=== PATIENT | female | born 1935 | race Caucasian/White ===

== ENCOUNTER → 2017-07-09 | Outpatient (CLI) | payer MEDICARE, OTHER ==
[~2017-07-09] MED LIST: ASPIRIN325; CALCIUM + VITA1 EACH PO; CALCIUM 600 +1 EAC5; CEPHALEXIN 500500 M3 PO; COUMADIN 5 MG TA5 MG PO; CRESTOR10 MG; HERBAL ENERGY1 EACH PO; HYDROCODONE-AP1 EAC6 PO; LEXAPRO 10 MG T10 M2; LIPITOR 20 MG T20 M1 PO; MULTIVITAMINS1 EAC7 PO; NORVASC5 MG PO; OMEGA-31000 M1 PO; SERTRALINE HCL50 MG PO; TIKOSYN500 MCG PO; VERAPAMIL ER180 MG; VITAMIN D400 UNI1 PO; XARELTO1 EACH PO
[2017-07-09 09:26] LABS: CHOLESTEROL 103 mg/dL (<200); HDL CHOLESTEROL 53 mg/dL (>40); LDL CHOLESTEROL 42 mg/dL (<100); TC:HDL 1.9 Ratio (Not establshd); TRIGLYCERIDE 43 mg/dL (<150); VLDL 9 mg/dL (<40)
[2017-07-09 09:27] LABS: SERUM ASSESSMENT Clear
[2017-07-10 02:07] LABS: GLYCOHEMOGLOBIN (HGB A1C) 6.9 % (4.8-5.6)
== END ==
LOC: M.LAB 08:31
PROVIDERS: Internal Medicine
DX: E78.2 Mixed hyperlipidemia (principal); E11.65 Type 2 diabetes mellitus with hyperglycemia; R26.2 Difficulty in walking, not elsewhere classified; I48.2 Chronic atrial fibrillation; Z79.4 Long term (current) use of insulin

== ENCOUNTER → 2017-10-13 | Outpatient (CLI) | payer MEDICARE, OTHER ==
[2017-10-13 09:25] LABS: CALCIUM 8.4 mg/dL (8.5-10.1); CREATININE 0.9 mg/dL (0.6-1.3); POTASSIUM 4.1 mmol/L (3.5-5.1)
[2017-10-14 02:06] LABS: GLYCOHEMOGLOBIN (HGB A1C) 7.5 % (4.8-5.6)
== END ==
LOC: M.LAB 08:55
PROVIDERS: Internal Medicine
DX: I10 Essential (primary) hypertension (principal); E11.65 Type 2 diabetes mellitus with hyperglycemia; I48.91 Unspecified atrial fibrillation; Z79.4 Long term (current) use of insulin

== ENCOUNTER → 2018-04-08 | Outpatient (CLI) | payer MEDICARE, OTHER | LOC: M.LAB 04-05 15:22 → M.CT 08:41 → M.LAB 10:30 | PROVIDERS: Nurse Practitioner | DX: N10 Acute pyelonephritis (principal); K57.30 Diverticulosis of large intestine without perforation or abscess without bleeding; Z88.8 Allergy status to other drugs, medicaments and biological substances ==

== ENCOUNTER → 2018-09-07 | Outpatient (CLI) | payer MEDICARE, OTHER ==
[2018-09-07 07:54] LABS: ABSOLUTE EOSINOPHILS 0.2 thou/uL (0.0-0.7); ABSOLUTE LYMPHOCYTES 0.8 thou/uL (0.8-5.3); ABSOLUTE MONOCYTES 0.3 thou/uL (0.0-1.2); ABSOLUTE NEUTROPHILS 2.9 thou/uL (1.6-8.1); BASOPHILS 1.1 %; EOSINOPHILS 3.9 %; HEMATOCRIT 37.2 % (37.0-47.0); HEMOGLOBIN 12.6 gm/dL (12.0-15.0); LYMPHOCYTES 19.6 %; MCH 30.3 pg (26.0-34.0); MCHC 33.9 g/dL (28.0-37.0); MCV 89.3 fL (80.0-100.0); MONOCYTES 7.9 %; MPV 7.2 fl. (7.2-11.1); NUCLEATED RBCS 0 /100WBC; PLATELET COUNT* 207 thou/uL (150-400); POLYS 67.5 %; RBC 4.17 mil/uL (4.20-5.00); RDW-CV 16.1 % (10.5-14.5); WBC 4.3 thou/uL (4.0-11.0)
[2018-09-07 08:27] LABS: ALBUMIN 3.2 g/dL (3.4-5.0); CALCIUM 8.7 mg/dL (8.5-10.1); CREATININE 0.9 mg/dL (0.6-1.3); MAGNESIUM 2.1 mg/dL (1.8-2.4); POTASSIUM 4.4 mmol/L (3.5-5.1); TOTAL BILIRUBIN 0.8 mg/dL (<0.1-1.0); TOTAL PROTEIN 6.6 g/dL (6.4-8.2)
== END ==
LOC: M.LAB 07:33
DX: I48.0 Paroxysmal atrial fibrillation (principal); I25.10 Atherosclerotic heart disease of native coronary artery without angina pectoris; R06.09 Other forms of dyspnea; I50.31 Acute diastolic (congestive) heart failure; R09.89 Other specified symptoms and signs involving the circulatory and respiratory systems; R60.9 Edema, unspecified; R14.0 Abdominal distension (gaseous)

== ENCOUNTER → 2018-09-15 | Outpatient (CLI) | payer MEDICARE, OTHER ==
[2018-09-15 08:19] LABS: POTASSIUM 4.4 mmol/L (3.5-5.1)
== END ==
LOC: M.LAB 07:21
DX: I11.0 Hypertensive heart disease with heart failure (principal); I50.31 Acute diastolic (congestive) heart failure; I48.0 Paroxysmal atrial fibrillation; I25.10 Atherosclerotic heart disease of native coronary artery without angina pectoris; R60.9 Edema, unspecified; R14.0 Abdominal distension (gaseous)

== ENCOUNTER → 2019-01-27 | Outpatient (CLI) | payer MEDICARE, OTHER ==
[2019-01-27 08:16] LABS: ABSOLUTE EOSINOPHILS 0.2 thou/uL (0.0-0.7); ABSOLUTE LYMPHOCYTES 0.8 thou/uL (0.8-5.3); ABSOLUTE MONOCYTES 0.4 thou/uL (0.0-1.2); ABSOLUTE NEUTROPHILS 3.1 thou/uL (1.6-8.1); BASOPHILS 1.1 %; EOSINOPHILS 4.4 %; HEMOGLOBIN 13.3 gm/dL (12.0-15.0); LYMPHOCYTES 17.8 %; MCH 31.2 pg (26.0-34.0); MCHC 35.1 g/dL (28.0-37.0); MCV 88.9 fL (80.0-100.0); MONOCYTES 8.1 %; MPV 7.6 fl. (7.2-11.1); NUCLEATED RBCS 0 /100WBC; PLATELET COUNT* 194 thou/uL (150-400); POLYS 68.6 %; RBC 4.27 mil/uL (4.20-5.00); RDW-CV 15.8 % (10.5-14.5); WBC 4.5 thou/uL (4.0-11.0)
[2019-01-27 08:32] LABS: ALBUMIN 3.3 g/dL (3.4-5.0); ALKALINE PHOSPHATASE 83 U/L (46-116); ANION GAP 10 mmol/L (7-16); BUN 13 mg/dL (7-18); CALCIUM 8.5 mg/dL (8.5-10.1); CHLORIDE 103 mmol/L (98-107); CHOLESTEROL 90 mg/dL (<200); CO2 26 mmol/L (21-32); GLUCOSE 138 mg/dL (70-99); HDL CHOLESTEROL 51 mg/dL (>40); LDL CHOLESTEROL 26 mg/dL (<100); SERUM ASSESSMENT Clear; SGOT 14 U/L (15-37); SGPT 21 U/L (30-65); SODIUM 139 mmol/L (136-145); TC:HDL 1.8 Ratio (Not establshd); TOTAL BILIRUBIN 0.6 mg/dL (<0.1-1.0); TRIGLYCERIDE 67 mg/dL (<150); VLDL 13 mg/dL (<40)
== END ==
LOC: M.LAB 07:31
PROVIDERS: Internal Medicine
DX: Z11.59 Encounter for screening for other viral diseases (principal); I48.21 Permanent atrial fibrillation; E11.65 Type 2 diabetes mellitus with hyperglycemia; E78.00 Pure hypercholesterolemia, unspecified; Z79.4 Long term (current) use of insulin; Z79.899 Other long term (current) drug therapy

== ENCOUNTER 2019-07-31 07:23 | Emergency (ER) | payer MEDICARE, OTHER ==
[~2019-07-31] VITALS: Ht 172.7 cm; Wt 88.0 kg
[~2019-07-31 07:23] MED LIST changes: +VITAMIN D-40010 MCG PO; -VITAMIN D400 UNI1 PO
[2019-07-31] MEDS ORDERED: LOMOTIL 2.5-0.01 TAB PO (07:40)
[2019-07-31] MEDS ORDERED: TRADJENTA5 MG (07:40)
[2019-07-31] MEDS ORDERED: LANTUS SUBQ (07:40)
[2019-07-31] MEDS ORDERED: MAGNESIUM400 MG PO (07:41)
[2019-07-31] MEDS ORDERED: TOPROL XL25 MG PO (07:41)
[2019-07-31] MEDS ORDERED: NOVOLOG100 UNIT/M SUBQ (07:41)
[2019-07-31] MEDS ORDERED: FUROSEMIDE 40 M40 MG PO (07:42)
[2019-07-31] MEDS ORDERED: SPIRONOLACTONE25 MG PO (07:42)
[2019-07-31] MEDS ORDERED: COUMADIN 5 MG TA5 M1 PO (07:42)
[2019-07-31] MEDS ORDERED: OYSCO 500+D TA1 EACH PO (07:44)
[2019-07-31] MEDS ORDERED: B12INJ IM (07:44)
[2019-07-31] MEDS ORDERED: CINNAMON500 MG PO (07:45)
[2019-07-31] MEDS ORDERED: COENZYME Q-1030 MG PO (07:45)
[2019-07-31] MEDS ORDERED: AZO CRANBERRY250 MG PO (07:46)
[2019-07-31 07:57] LABS: ABSOLUTE BASOPHILS 0.1 thou/uL (0.0-0.2); ABSOLUTE EOSINOPHILS 0.2 thou/uL (0.0-0.7); ABSOLUTE LYMPHOCYTES 0.8 thou/uL (0.8-5.3); ABSOLUTE MONOCYTES 0.4 thou/uL (0.0-1.2); ABSOLUTE NEUTROPHILS 3.2 thou/uL (1.6-8.1); BASOPHILS 1.3 %; EOSINOPHILS 3.4 %; HEMATOCRIT 36.7 % (37.0-47.0); HEMOGLOBIN 12.7 gm/dL (12.0-15.0); LYMPHOCYTES 17.5 %; MCH 31.3 pg (26.0-34.0); MCHC 34.6 g/dL (28.0-37.0); MCV 90.3 fL (80.0-100.0); MONOCYTES 8.9 %; MPV 7.9 fl. (7.2-11.1); NUCLEATED RBCS 0 /100WBC; PLATELET COUNT* 189 thou/uL (150-400); POLYS 68.9 %; RBC 4.06 mil/uL (4.20-5.00); RDW-CV 15.4 % (10.5-14.5); WBC 4.6 thou/uL (4.0-11.0)
[2019-07-31 08:01] LABS: CALCIUM 8.3 mg/dL (8.5-10.1); CREATININE 1.1 mg/dL (0.6-1.3); POTASSIUM 3.8 mmol/L (3.5-5.1)
[2019-07-31 08:02] LABS: APTT 31.7 Seconds (25.0-31.3); INR 2.3
[2019-07-31 08:11] LABS: ALBUMIN 3.2 g/dL (3.4-5.0); TOTAL BILIRUBIN 0.7 mg/dL (<0.1-1.0); TOTAL PROTEIN 6.9 g/dL (6.4-8.2)
[2019-07-31 08:11] LABS: URINE BILIRUBIN NEGATIVE (Negative); URINE BLOOD 1+ (Negative); URINE CLARITY SL CLOUDY; URINE COLOR YELLOW; URINE GLUCOSE-RANDOM TRACE (Negative); URINE KETONES NEGATIVE (Negative); URINE PROTEIN NEGATIVE (Negative); URINE SPECIFIC GRAVITY 1.015 (1.005-1.030); URINE UROBILINOGEN 0.2 E.U./dl (0.2-1.0)
[2019-07-31 08:12] LABS: URINE LEUKOCYTES-REFLEX 2+ (Negative); URINE NITRITE-REFLEX POSITIVE (Negative)
[2019-07-31 08:20] LABS: SQUAMOUS 4-10 Moderate /LPF (0-3); WBC CLUMPS Few (None Seen)
[2019-07-31 08:21] LABS: BACTERIA-REFLEX >30 Many /HPF (None Seen); MUCUS None Seen strn/LPF (None Seen); URINE RBC 0-2 Rare /HPF (0-2); URINE WBC-REFLEX >25 Many /HPF (0-5)
[2019-07-31 08:22] LABS: CASTS None Seen /LPF (None Seen); CRYSTALS None Seen /LPF (None Seen)
[2019-07-31 08:45] VITALS: BP 154/80
--- NOTE | 2019-07-31 13:29 | EKG ---
[place] [address] ELECTROCARDIOGRAM REPORT Name: JAQUI VAILA Room: [facility]#: [id number] Admission: 07/31/19 Attend Phys: Discharge: 07/31/19 Date of : 39 Date of Service: 07/31/19 0750 Report #: [id number] THIS REPORT FOR: //name// [facility] ED Test Date: 2019-07-31 Test Time: 07:50:50 Pat Name: JAQUI AVILA Department: Room: Gender: F Maintenance Team Leader: DS : 1935 Requested By: Carlton Reinoso Order Number: [id number] MD: Jax Mcguire Measurements Intervals [place] Rate: 77 P: 51 TX: 195 QRS: 58 QRSD: 90 T: 49 QT: 423 QTc: 479 Interpretive Statements Sinus rhythm RSR' in V1 or V2, right VCD or RVH Compared to ECG 07/07/2015 10:31:06 Atrial fibrillation no longer present Ventricular premature complex(es) no longer present Electronically Signed On 07-31-2019 13:29:16 CDT by Jax Mcguire [email or web address] <ELECTRONICALLY SIGNED> By: Jax Mcguire MD, FAC 07/31/19 1329 0750 0750 Jax Mcguire MD, FAC /EPI
== END 2019-07-31 08:46 | disposition home or self-care (01) ==
LOC: M.ERS 07:23
PROVIDERS: Family Medicine
DX: R04.2 Hemoptysis (principal); I48.91 Unspecified atrial fibrillation; Z79.4 Long term (current) use of insulin; Z79.84 Long term (current) use of oral hypoglycemic drugs; Z79.899 Other long term (current) drug therapy; Z88.8 Allergy status to other drugs, medicaments and biological substances

== ENCOUNTER → 2020-01-02 | Outpatient (CLI) | payer MEDICARE, OTHER ==
[~2020-01-02] MED LIST changes: +AZO CRANBERRY250 MG PO; +B12INJ IM; +CINNAMON500 MG PO; +COENZYME Q-1030 MG PO; +COUMADIN 5 MG TA5 M1 PO; +FUROSEMIDE 40 M40 MG PO; +LANTUS SUBQ; +LOMOTIL 2.5-0.01 TAB PO; +MAGNESIUM400 MG PO; +NOVOLOG100 UNIT/M SUBQ; +OYSCO 500+D TA1 EACH PO; +SPIRONOLACTONE25 MG PO; +TOPROL XL25 MG PO; +TRADJENTA5 MG
[2020-01-02 08:05] LABS: HEMOGLOBIN 12.7 gm/dL (12.0-15.0); MCH 29.8 pg (26.0-34.0); MCHC 33.3 g/dL (28.0-37.0); MCV 89.4 fL (80.0-100.0); MPV 7.8 fl. (7.2-11.1); RBC 4.25 mil/uL (4.20-5.00); RDW-CV 15.8 % (10.5-14.5); WBC 4.9 thou/uL (4.0-11.0)
[2020-01-02 08:15] LABS: ALBUMIN 3.2 g/dL (3.4-5.0); ALKALINE PHOSPHATASE 90 U/L (46-116); ANION GAP 5 mmol/L (7-16); BUN 14 mg/dL (7-18); CALCIUM 8.5 mg/dL (8.5-10.1); CHLORIDE 103 mmol/L (98-107); CHOLESTEROL 115 mg/dL (<200); CO2 31 mmol/L (21-32); CREATININE 1.2 mg/dL (0.6-1.3); GLUCOSE 228 mg/dL (70-99); HDL CHOLESTEROL 56 mg/dL (>40); LDL CHOLESTEROL 47 mg/dL (<100); POTASSIUM 4.1 mmol/L (3.5-5.1); SGOT 20 U/L (15-37); SGPT 29 U/L (30-65); SODIUM 139 mmol/L (136-145); TC:HDL 2.1 Ratio (Not establshd); TOTAL BILIRUBIN 0.7 mg/dL (<0.1-1.0); TOTAL PROTEIN 6.8 g/dL (6.4-8.2); TRIGLYCERIDE 63 mg/dL (<150); VLDL 13 mg/dL (<40)
[2020-01-02 08:24] LABS: SERUM ASSESSMENT Clear
== END ==
LOC: M.LAB 07:24
PROVIDERS: ATTEND Internal Medicine Cardiovascular Disease
DX: I48.0 Paroxysmal atrial fibrillation (principal); I25.10 Atherosclerotic heart disease of native coronary artery without angina pectoris

== ENCOUNTER → 2020-05-15 | Outpatient (CLI) | payer MEDICARE, OTHER ==
[2020-05-15 07:59] LABS: CALCIUM 8.7 mg/dL (8.5-10.1); CREATININE 1.1 mg/dL (0.6-1.3); POTASSIUM 4.2 mmol/L (3.5-5.1)
[2020-05-15 22:06] LABS: GLYCOHEMOGLOBIN (HGB A1C) 9.5 % (4.8-5.6)
== END ==
LOC: M.LAB 07:23
PROVIDERS: ATTEND Internal Medicine
DX: E11.65 Type 2 diabetes mellitus with hyperglycemia (principal); Z79.4 Long term (current) use of insulin

== ENCOUNTER → 2021-01-07 | Outpatient (CLI) | payer MEDICARE, OTHER | LOC: M.ULTRA 07:09 | PROVIDERS: ATTEND Internal Medicine | DX: J84.89 Other specified interstitial pulmonary diseases (principal); M47.814 Spondylosis without myelopathy or radiculopathy, thoracic region; I70.0 Atherosclerosis of aorta ==